=== PATIENT | female | born 1995 | race Caucasian/White ===

== ENCOUNTER 2022-03-06 21:02 | Emergency (ER) | payer MEDICAID ==
[~2022-03-06] VITALS: Ht 162.6 cm; Wt 65.1 kg
[2022-03-06 22:05] VITALS: BP 144/94
[2022-03-07] MEDS ORDERED: HYDR-4001 MT (00:45)
[2022-03-07] MEDS ORDERED: IBUP-2028 MT (00:45)
[2022-03-07] MEDS ORDERED: CLIN-194 MT (00:45)
== END 2022-03-07 01:16 | disposition home or self-care (01) ==
LOC: ER 21:02
DX: K04.7 Periapical abscess without sinus (principal); R22.0 Localized swelling, mass and lump, head; Z90.49 Acquired absence of other specified parts of digestive tract; Z98.890 Other specified postprocedural states
CPT/HCPCS: 99282; 99283